=== PATIENT | female | born 1955 | race Hispanic/Latino ===

== ENCOUNTER 2017-02-25 08:17 | Outpatient (CLI) | payer MEDICARE ==
--- NOTE | 2017-02-25 09:17 | Mammography Report ---
Screening mammogram: Routine views compared to exams dating back to 2012. In the left CC projection there is an area of asymmetry not identified on prior studies. The remainder of the left breast pattern as well as that of the right breast pattern is unchanged from prior exams and no suspicious findings noted. CAD used. Impression: Left breast asymmetry. Recommendation: Additional compression imaging of the left breast and ultrasound if needed. BI-RADS CATEGORY: 0 = Needs additional imaging evaluation ACR BI-RADS MAMMOGRAPHIC CODES: 0 = Needs additional imaging evaluation; 1 = Negative; 2 = Benign; 3 = Probably benign; 4 = Suspicious; 5 = Malignant; 6 = Known biopsy-proven malignancy COMMENT: 1. Dense breast tissue, i.e., adenosis, fibrocystic changes, etc., may obscure an underlying neoplasm. 2. Approximately 10% of cancers are not detected with mammography. 3. A negative mammography report should not delay biopsy if a clinically suspicious mass is present.
== END 2017-02-25 08:18 | disposition home or self-care (01) ==
LOC: SPVWC 08:17
PROVIDERS: ATTEND Internal Medicine
DX: Z12.31 Encounter for screening mammogram for malignant neoplasm of breast (principal)
CPT/HCPCS: 77067; G0202

== ENCOUNTER 2017-03-06 12:19 | Outpatient (CLI) | payer MEDICARE ==
--- NOTE | 2017-03-06 13:01 | Mammography Report ---
LEFT DIGITAL DIAGNOSTIC MAMMOGRAM : 03/06/17 12:19:00 CLINICAL: Recalled for asymmetry. COMPARISON:11/26/16 screening FINDINGS: ML and spot compression CC views were performed and are negative. IMPRESSION: Negative Mammogram. BI-RADS CATEGORY: 1 -- Negative RECOMMENDATION: Routine mammographic screening in one year. ACR BI-RADS MAMMOGRAPHIC CODES: 0 = Needs additional imaging evaluation; 1 = Negative; 2 = Benign; 3 = Probably benign; 4 = Suspicious; 5 = Malignant; 6 = Known biopsy-proven malignancy COMMENT: 1. Dense breast tissue, i.e., adenosis, fibrocystic changes, etc., may obscure an underlying neoplasm. 2. Approximately 10% of cancers are not detected with mammography. 3. A negative mammography report should not delay biopsy if a clinically suspicious mass is present. COMMENT: Patient follow-up letters are generated via our [employer] application.
== END 2017-03-06 12:20 | disposition home or self-care (01) ==
LOC: SPVWC 12:19
PROVIDERS: ATTEND Internal Medicine
DX: R92.8 Other abnormal and inconclusive findings on diagnostic imaging of breast (principal)
CPT/HCPCS: G0206-LT

== ENCOUNTER 2019-04-02 08:11 | Outpatient (CLI) | payer MEDICARE ==
--- NOTE | 2019-04-02 13:56 | Mammography Report ---
DIGITAL SCREENING MAMMOGRAM WITH CAD, 04/02/2019 INDICATION: Routine screening mammography. TECHNIQUE: Digital bilateral 2D mammography was obtained in the craniocaudal and mediolateral obliq ue projections. This examination was interpreted with the benefit of Computer-Aided Detection analysi s. COMPARISON: 02/26/2018 FINDINGS: Breast Density: There are scattered areas of fibroglandular density. There is no evidence of dominant mass, suspicious calcifications or architectural distortion in eithe r breast. IMPRESSION: No mammographic evidence of malignancy. Follow up recommendation: Routine yearly BI-RADS Category 1: Negative. A "normal" or negative report should not discourage follow up or biopsy of a clinically significant f inding. A written summary of these findings will be mailed to the patient. The patient will be entered into a mammography reporting system which will generate a reminder letter for the patient's next appointmen t at the appropriate interval. The [employer] recommends yearly mammograms starting at age 40 and continuing as l negrita as a woman is in good health. Breast MRI is recommended for women with an approximate 20-25% or greater lifetime risk of breast cancer, including women with a strong family history of breast or ova elsa cancer or who have been treated for Hodgkin's disease. Signer Name: Jacoby Moreno MD Signed: 04/02/2019 1:51 PM Workstation Name: [id number]
== END 2019-04-02 08:12 | disposition home or self-care (01) ==
LOC: SPVWC 08:11
PROVIDERS: ATTEND Internal Medicine
DX: Z12.31 Encounter for screening mammogram for malignant neoplasm of breast (principal); N64.89 Other specified disorders of breast
CPT/HCPCS: 77067

== ENCOUNTER 2020-04-04 11:10 | Outpatient (CLI) | payer MEDICARE ==
--- NOTE | 2020-04-06 13:08 | Mammography Report ---
DIGITAL SCREENING MAMMOGRAM WITH CAD, 04/04/2020 CLINICAL INFORMATION / INDICATION: Routine screening mammography. TECHNIQUE: Digital bilateral 2D mammography was obtained in the craniocaudal and mediolateral obliqu e projections. This examination was interpreted with the benefit of Computer-Aided Detection analysis . COMPARISON: 04/02/2019, 02/26/2018 FINDINGS: Breast Density: There are scattered areas of fibroglandular density. No dominant mass, suspicious calcifications, or architectural distortion in either breast. IMPRESSION: No mammographic evidence of malignancy. Follow up recommendation: Routine yearly BI-RADS Category 1: Negative. A "normal" or negative report should not discourage follow up or biopsy of a clinically significant f inding. A written summary of these findings will be mailed to the patient. The patient will be entered into a mammography reporting system which will generate a reminder letter for the patient's next appointmen t at the appropriate interval. The [employer] recommends yearly mammograms starting at age 40 and continuing as l negrita as a woman is in good health. Breast MRI is recommended for women with an approximate 20-25% or greater lifetime risk of breast cancer, including women with a strong family history of breast or ova elsa cancer or who have been treated for Hodgkin's disease. Signer Name: Juan Carlos Cowart MD Signed: 04/06/2020 1:03 PM Workstation Name: [id number]
== END 2020-04-04 11:11 | disposition home or self-care (01) ==
LOC: SPVWC 11:10
PROVIDERS: ATTEND Internal Medicine
DX: Z12.31 Encounter for screening mammogram for malignant neoplasm of breast (principal)
CPT/HCPCS: 77067

== ENCOUNTER 2021-04-05 13:40 | Outpatient (CLI) | payer MEDICARE ==
--- NOTE | 2021-04-06 10:13 | Mammography Report ---
DIGITAL SCREENING MAMMOGRAM WITH CAD, 04/05/2021 CLINICAL INFORMATION / INDICATION: Routine screening mammography. SCREENING MAMMO Z12.31 TECHNIQUE: Digital bilateral 2D mammography was obtained in the craniocaudal and mediolateral obliqu e projections. This examination was interpreted with the benefit of Computer-Aided Detection analysis . COMPARISON: Prior mammogram 04/04/2020 and 04/02/2019 FINDINGS: Breast Density: There are scattered areas of fibroglandular density. No dominant mass, suspicious calcifications, or architectural distortion in either breast. There has been no significant change compared with the prior examinations. IMPRESSION: No mammographic evidence of malignancy. Follow up recommendation: Routine yearly BI-RADS Category 1: NEGATIVE A "normal" or negative report should not discourage follow up or biopsy of a clinically significant f inding. A written summary of these findings will be mailed to the patient. The patient will be entered into a mammography reporting system which will generate a reminder letter for the patient's next appointmen t at the appropriate interval. The [employer] recommends yearly mammograms starting at age 40 and continuing as l negrita as a woman is in good health. Breast MRI is recommended for women with an approximate 20-25% or greater lifetime risk of breast cancer, including women with a strong family history of breast or ova elsa cancer or who have been treated for Hodgkin's disease. Signer Name: Kathleen Villalobos MD Signed: 04/06/2021 10:09 AM Workstation Name: [email or web address]
== END 2021-04-05 13:41 | disposition home or self-care (01) ==
LOC: SPVWC 13:40
PROVIDERS: ATTEND Internal Medicine
DX: Z12.31 Encounter for screening mammogram for malignant neoplasm of breast (principal); N64.89 Other specified disorders of breast
CPT/HCPCS: 77067

== ENCOUNTER 2021-06-15 08:48 | Outpatient (CLI) | payer MEDICARE, BC ==
--- NOTE | 2021-06-15 09:51 | XRay Report ---
CHEST 2 VIEWS INDICATION / CLINICAL INFORMATION: SOB R06.02 I27.29. COMPARISON: None available. FINDINGS: SUPPORT DEVICES: None. HEART / MEDIASTINUM: No significant abnormality. LUNGS / PLEURA: No significant pulmonary or pleural abnormality. No pneumothorax. ADDITIONAL FINDINGS: No significant additional findings. IMPRESSION: 1. No acute findings. Signer Name: Scott Ho MD Signed: 06/15/2021 9:46 AM Workstation Name: [id number]
--- NOTE | 2021-06-15 09:56 | Nuclear Medicine Report ---
NM PERFUSION ONLY LUNG SCAN INDICATION / CLINICAL INFORMATION: SOB R06.02 I27.29. TRACER: Technetium 99m MAA 5.5 mCi IV injection. COMPARISON: No relevant prior imaging study available. FINDINGS: Following injection of the above tracer, imaging was performed in 8 projections. Physiologic tracer u ptake is present. Negative for suspicious perfusion defect. IMPRESSION: No suspicious perfusion defect. Signer Name: Marcio Edge MD Signed: 06/15/2021 9:52 AM Workstation Name: [id number]
== END 2021-06-15 08:49 | disposition home or self-care (01) ==
LOC: NM 08:48
PROVIDERS: ATTEND Internal Medicine
DX: R06.02 Shortness of breath (principal); I27.29 Other secondary pulmonary hypertension
CPT/HCPCS: 71046; 78580; A9540